=== PATIENT | male | born 1980 | race Caucasian/White ===

== ENCOUNTER 2018-05-08 05:13 | Emergency (ER) | payer OTHER ==
[2018-05-08 05:23] LABS: Glucose,Whole Blood 120 mg/dL (75-99)
[2018-05-08 05:24] VITALS: TEMP 97.3
--- NOTE | 2018-05-08 05:33 | ED ---
General Adult HPI - General Chief complaint: Recheck/Abnormal Lab/Rx Stated complaint: ETOH Time Seen by Provider: 05/08/18 05:18 Source: patient Mode of arrival: EMS Limitations: no limitations - History of Present Illness Initial comments: Shunt is a 37-year-old gentleman who presents to the emergency department today via EMS for evaluation of alcohol intoxication. Patient states that this evening he drank a couple OF high percentage alcohol beer. He states that he became intoxicated and was unable to return to his [facility] house therefore he decided to go to the local [facility] where he subsequent he fell asleep for approximately 2 hours. At that time staff at [facility] called 911, patient states that he asked the police to take him to the drunk tank because he had nowhere else to go however they were unwilling to do that due to his alcohol intoxication and he was transferred here. Patient has no complaints and states that he simply has nowhere to go. - Related Data Home Medications Medication Instructions Recorded Confirmed No Known Home Medications 05/08/18 05/08/18 Allergies Allergy/AdvReac Type Severity Reaction Status Date / Time No Known Allergies Allergy Verified 05/08/18 08:50 Review of Systems ROS Statement: Those systems with pertinent positive or pertinent negative responses have been documented in the HPI. ROS Other: All systems not noted in ROS Statement are negative. Past Medical History Past Medical History: No Reported History Additional Past Medical History / Comment(s): Substance abuse History of Any Multi-Drug Resistant Organisms: None Reported Past Surgical History: No Surgical Hx Reported Past Psychological History: No Psychological Hx Reported Smoking Status: Current every day smoker Past Alcohol Use History: Occasional Past Drug Use History: None Reported General Exam - General Exam Comments Initial Comments: Physical Exam GENERAL: Patient is well-developed and well-nourished. Patient is nontoxic and well- hydrated and is in no distress. Appears intoxicated, smells of alcohol HENT: Normocephalic, Atraumatic. EYES: PERRL, EOMI PULMONARY: Unlabored respirations. No audible rales rhonchi or wheezing was noted. CARDIOVASCULAR: There is a regular rate and rhythm without any murmurs gallops or rubs. ABDOMEN: Soft and nontender with normal bowel sounds. SKIN: Skin is clear with no lesions or rashes and otherwise unremarkable. : Deferred NEUROLOGIC: Patient is alert and oriented x3. Moving all extremities spontaneously MUSCULOSKELETAL: Normal extremities with adequate strength and full range of motion. No lower extremity swelling or edema. No calf tenderness. PSYCHIATRIC: Normal psychiatric evaluation. Limitations: no limitations Limitations: no limitations Course Vital Signs 05/08/18 05:18 Temperature 97.3 F L Pulse Rate 80 Respiratory 20 Rate Blood Pressure 135/90 O2 Sat by Pulse 99 Oximetry Medical Decision Making - Medical Decision Making The patient was seen and evaluated, history was obtained from the patient and EMS Patient with no acute complaints, admits to drinking alcohol, has no place to go and no family to contact. Physical exam with no evidence of trauma, vital signs unremarkable Medical screening exam with no acute findings At this time there is no indication for further workup. Patient's breath alcohol level was measured he will be legally sober at 1:30 PM Patient care is signed out to Dr. Winkler at 9am - Lab Data Lab Results 05/08/18 Range/Units 05:20 POC Glucose (mg/dL) 120 H (75-99) mg/dL POC Glu Public Service Administrator ID Meagan Desai Disposition Clinical Impression: Alcohol intoxication Disposition: HOME SELF-CARE Condition: Good Instructions: Abuse of Alcohol (ED) Referrals: Kurtis Rainey PAC [REFERRING] - 1-2 days
[2018-05-08 13:12] VITALS: BP 130/89; PULSE 110; RESP 18
== END 2018-05-08 13:09 | disposition home or self-care (01) ==
LOC: SUPCPDRO 05:13 → EC 05:13
DX: F10.129 Alcohol abuse with intoxication, unspecified (principal); F17.200 Nicotine dependence, unspecified, uncomplicated
CPT/HCPCS: 36415; 99284

== ENCOUNTER 2018-05-08 18:29 | Inpatient (IN) | payer MEDICAID, OTHER ==
[2018-05-08] MEDS ORDERED: LORazepam 1 MG TAB PO STA (20:21)
--- NOTE | 2018-05-08 20:29 | ED ---
General Adult HPI - General Source: patient, RN notes reviewed Mode of arrival: ambulatory Limitations: no limitations <Parker Toney - Last Filed: 05/08/18 20:38> <Yonathan Richardson - Last Filed: 05/09/18 12:12> - General Chief complaint: Alcohol Stated complaint: Alcohol Time Seen by Provider: 05/08/18 18:30 - History of Present Illness Initial comments: This is a 37-year-old male who presents emergency Department complaining that he is suicidal. Patient states he is upset because he has a drinking problem and he was clean for 60 days and this week he started drinking again. Patient was just discharged from the emergency department this morning after he had been here because of drinking. Patient states went back up today and continue drinking and now is at the point where he wants to harm himself. Patient states she's also kicked out of the three-quarter home because of his drinking. Patient denies any physical complaints today. Patient denies making any attempt at suicide today. Patient denies headache patient denies numbness weakness. Patient denies any lightheadedness dizziness or near syncopal episode. Patient denies any chest pain difficulty breathing shortest breath per patient denies any recent fever chills or cough. Patient denies abdominal pain patient denies nausea vomiting or diarrhea. Patient denies any injury or trauma. (Parker Toney) - Related Data Home Medications Medication Instructions Recorded Confirmed No Known Home Medications 05/08/18 05/08/18 Allergies Allergy/AdvReac Type Severity Reaction Status Date / Time No Known Allergies Allergy Verified 05/08/18 20:05 Review of Systems ROS Other: All systems not noted in ROS Statement are negative. <Parker Toney - Last Filed: 05/08/18 20:38> ROS Other: All systems not noted in ROS Statement are negative. <Yonathan Richardson - Last Filed: 05/09/18 12:12> ROS Statement: Those systems with pertinent positive or pertinent negative responses have been documented in the HPI. Past Medical History Past Medical History: No Reported History Additional Past Medical History / Comment(s): Substance abuse History of Any Multi-Drug Resistant Organisms: None Reported Past Surgical History: No Surgical Hx Reported Past Psychological History: No Psychological Hx Reported Smoking Status: Current every day smoker Past Alcohol Use History: Abuse, Heavy Past Drug Use History: None Reported <Parker Toney - Last Filed: 05/08/18 20:38> General Exam Limitations: no limitations <Parker Toney - Last Filed: 05/08/18 20:38> <Yonathan Richardson - Last Filed: 05/09/18 12:12> - General Exam Comments Initial Comments: GENERAL: Patient is well-developed and well-nourished. Patient is nontoxic and well- hydrated and is in mild distress. Patient appears intoxicated. ENT: Neck is soft and supple. No significant lymphadenopathy is noted. Oropharynx is clear. Moist mucous membranes. Neck has full range of motion without eliciting any pain. EYES: The sclera were anicteric and conjunctiva were pink and moist. Extraocular movements were intact and pupils were equal round and reactive to light. Eyelids were unremarkable. PULMONARY: Unlabored respirations. Good breath sounds bilaterally. No audible rales rhonchi or wheezing was noted. CARDIOVASCULAR: There is a regular rate and rhythm without any murmurs gallops or rubs. ABDOMEN: Soft and nontender with normal bowel sounds. SKIN: Skin is clear with no lesions or rashes and otherwise unremarkable. NEUROLOGIC: Patient is alert and oriented x3. Cranial nerves II through XII are grossly intact. Motor and sensory are also intact. Normal speech, volume and content. Symmetrical smile. MUSCULOSKELETAL: Normal extremities with adequate strength and full range of motion. No lower extremity swelling or edema. No calf tenderness. LYMPHATICS: No significant lymphadenopathy is noted PSYCHIATRIC: Patient states he suicidal. (Parekr Toney) Vital Signs 05/08/18 05/08/18 05/08/18 18:42 20:43 22:01 Temperature 97.9 F 96.9 F L Pulse Rate 103 H 88 120 H Respiratory 20 18 18 Rate Blood Pressure 152/76 122/75 120/58 O2 Sat by Pulse 98 97 95 Oximetry 05/09/18 05/09/18 00:43 06:03 Temperature 97.9 F 96.7 F L Pulse Rate 84 102 H Respiratory 14 16 Rate Blood Pressure 96/55 115/58 O2 Sat by Pulse 96 97 Oximetry Medical Decision Making <Parker Toney - Last Filed: 05/08/18 20:38> - Lab Data Result diagrams: 05/09/18 10:34 05/09/18 10:34 <Yonathan Richardson - Last Filed: 05/09/18 12:12> - Medical Decision Making Dr. Slater will be taking over the care of this patient at 9 PM (Parker Toney) Patient's care is signed out at shift change awaiting EPS final disposition. I did complete a clinical cert on this patient he is still suicidal with a plan. He will be admitted to this institution for further psychiatric evaluation and treatment. (Yonathan Richardson) - Lab Data Lab Results 05/08/18 05/09/18 05/09/18 Range/Units 21:03 10:34 10:34 WBC 9.5 (3.8-10.6) k/uL RBC 4.57 (4.30-5.90) m/uL Hgb 10.1 L (13.0-17.5) gm/dL Hct 32.8 L (39.0-53.0) % MCV 71.8 L (80.0-100.0) fL MCH 22.2 L (25.0-35.0) pg MCHC 30.9 L (31.0-37.0) g/dL RDW 20.1 H (11.5-15.5) % Plt Count 411 (150-450) k/uL Neutrophils % 63 % Lymphocytes % 27 % Monocytes % 5 % Eosinophils % 1 % Basophils % 1 % Neutrophils # 6.0 (1.3-7.7) k/uL Lymphocytes # 2.6 (1.0-4.8) k/uL Monocytes # 0.5 (0-1.0) k/uL Eosinophils # 0.1 (0-0.7) k/uL Basophils # 0.1 (0-0.2) k/uL Hypochromasia Moderate Anisocytosis Moderate Microcytosis Marked Sodium 139 (137-145) mmol/L Potassium 4.5 (3.5-5.1) mmol/L Chloride 109 H (98-107) mmol/L Carbon Dioxide 26 (22-30) mmol/L Anion Gap 4 mmol/L BUN 10 (9-20) mg/dL Creatinine 0.71 (0.66-1.25) mg/dL Est GFR (CKD-EPI)AfAm >90 (>60 ml/min/1.73 sqM) Est GFR (CKD-EPI)NonAf >90 (>60 ml/min/1.73 sqM) Glucose 103 H (74-99) mg/dL Calcium 9.4 (8.4-10.2) mg/dL Total Bilirubin 0.5 (0.2-1.3) mg/dL AST 27 (17-59) U/L ALT 29 (21-72) U/L Alkaline Phosphatase 91 (38-126) U/L Total Protein 7.0 (6.3-8.2) g/dL Albumin 3.9 (3.5-5.0) g/dL Urine Color Urine Appearance (Clear) Urine pH (5.0-8.0) Ur Specific Gaffney (1.001-1.035) Urine Protein (Negative) Urine Glucose (UA) (Negative) Urine Ketones (Negative) Urine Blood (Negative) Urine Nitrite (Negative) Urine Bilirubin (Negative) Urine Urobilinogen (<2.0) mg/dL Ur Leukocyte Esterase (Negative) Urine Opiates Screen Not Detected (NotDetected) Ur Oxycodone Screen Not Detected (NotDetected) Urine Methadone Screen Not Detected (NotDetected) Ur Propoxyphene Screen Not Detected (NotDetected) Ur Barbiturates Screen Not Detected (NotDetected) U Tricyclic Antidepress Not Detected (NotDetected) Ur Phencyclidine Scrn Not Detected (NotDetected) Ur Amphetamines Screen Not Detected (NotDetected) U Methamphetamines Scrn Not Detected (NotDetected) U Benzodiazepines Scrn Not Detected (NotDetected) Urine Cocaine Screen Not Detected (NotDetected) U Marijuana (THC) Screen Not Detected (NotDetected) 05/09/18 Range/Units 10:38 WBC (3.8-10.6) k/uL RBC (4.30-5.90) m/uL Hgb (13.0-17.5) gm/dL Hct (39.0-53.0) % MCV (80.0-100.0) fL MCH (25.0-35.0) pg MCHC (31.0-37.0) g/dL RDW (11.5-15.5) % Plt Count (150-450) k/uL Neutrophils % % Lymphocytes % % Monocytes % % Eosinophils % % Basophils % % Neutrophils # (1.3-7.7) k/uL Lymphocytes # (1.0-4.8) k/uL Monocytes # (0-1.0) k/uL Eosinophils # (0-0.7) k/uL Basophils # (0-0.2) k/uL Hypochromasia Anisocytosis Microcytosis Sodium (137-145) mmol/L Potassium (3.5-5.1) mmol/L Chloride (98-107) mmol/L Carbon Dioxide (22-30) mmol/L Anion Gap mmol/L BUN (9-20) mg/dL Creatinine (0.66-1.25) mg/dL Est GFR (CKD-EPI)AfAm (>60 ml/min/1.73 sqM) Est GFR (CKD-EPI)NonAf (>60 ml/min/1.73 sqM) Glucose (74-99) mg/dL Calcium (8.4-10.2) mg/dL Total Bilirubin (0.2-1.3) mg/dL AST (17-59) U/L ALT (21-72) U/L Alkaline Phosphatase (38-126) U/L Total Protein (6.3-8.2) g/dL Albumin (3.5-5.0) g/dL Urine Color Yellow Urine Appearance Clear (Clear) Urine pH 7.0 (5.0-8.0) Ur Specific Gaffney 1.013 (1.001-1.035) Urine Protein Negative (Negative) Urine Glucose (UA) Negative (Negative) Urine Ketones Negative (Negative) Urine Blood Negative (Negative) Urine Nitrite Negative (Negative) Urine Bilirubin Negative (Negative) Urine Urobilinogen <2.0 (<2.0) mg/dL Ur Leukocyte Esterase Negative (Negative) Urine Opiates Screen (NotDetected) Ur Oxycodone Screen (NotDetected) Urine Methadone Screen (NotDetected) Ur Propoxyphene Screen (NotDetected) Ur Barbiturates Screen (NotDetected) U Tricyclic Antidepress (NotDetected) Ur Phencyclidine Scrn (NotDetected) Ur Amphetamines Screen (NotDetected) U Methamphetamines Scrn (NotDetected) U Benzodiazepines Scrn (NotDetected) Urine Cocaine Screen (NotDetected) U Marijuana (THC) Screen (NotDetected) Disposition <Parker Toney - Last Filed: 05/08/18 20:38> Is patient prescribed a controlled substance at d/c from ED?: No Decision to Admit Reason: Admit from EC Decision Date: 05/09/18 Decision Time: 12:12 <Yonathan Richardson - Last Filed: 05/09/18 12:12> Clinical Impression: Suicidal ideation, Alcohol intoxication Disposition: ADMITTED IP TO THIS HOSP Condition: Stable Referrals: None,Stated [Primary Care Provider] - 1-2 days
[2018-05-08 21:35] LABS: Amphetamine Screen,Urine Not Detected (NotDetected); Barbiturate Screen,Urine Not Detected (NotDetected); Benzodiazepines Screen,Urine Not Detected (NotDetected); Cocaine Screen,Urine Not Detected (NotDetected); Methadone Screen, Urine Not Detected (NotDetected); Opiate Screen,Urine Not Detected (NotDetected); Oxycodone Screen, Urine Not Detected (NotDetected); Phencyclidine Screen,Urine Not Detected (NotDetected); Tricyclic Antidepressant,Urine Not Detected (NotDetected); Urn Cannabinoid Scrn Not Detected (NotDetected)
--- NOTE | 2018-05-09 08:01 | CDI ---
Documentation Clarification OP Dear Dr.Roskopp Canales Please clinical impression & disposition. Thank you, Wei Serrano Battery Vent Plug Inserter If you have any questions, please contact Licensed Weigher at [phone] [facility]
[2018-05-09 10:52] LABS: Anisocytosis Moderate; Basophils # (A) 0.1 k/uL (0-0.2); Basophils % (A) 1 %; Eosinophils # (A) 0.1 k/uL (0-0.7); Eosinophils % (A) 1 %; HCT 32.8 % (39.0-53.0); HGB 10.1 gm/dL (13.0-17.5); Hypochromasia Moderate; Lymphocytes # (A) 2.6 k/uL (1.0-4.8); Lymphocytes % (A) 27 %; MCH 22.2 pg (25.0-35.0); MCHC 30.9 g/dL (31.0-37.0); MCV 71.8 fL (80.0-100.0); Mean Platelet Volume 6.9; Microcytosis Marked; Monocytes # (A) 0.5 k/uL (0-1.0); Monocytes % (A) 5 %; Neutrophils % (A) 63 %; Platelet Count 411 k/uL (150-450); RBC 4.57 m/uL (4.30-5.90); RDW 20.1 % (11.5-15.5); WBC 9.5 k/uL (3.8-10.6)
[2018-05-09 10:55] LABS: Appearance,Urine Clear (Clear); Bilirubin,Urine Negative (Negative); Blood,Urine Negative (Negative); Color,Urine Yellow; Glucose,Urine (UA) Negative (Negative); Ketones,Urine Negative (Negative); Leukocyte Esterase,Urine Negative (Negative); Nitrite,Urine Negative (Negative); Protein,Urine Negative (Negative); Specific Gravity,Urine 1.013 (1.001-1.035); Urobilinogen,Urine <2.0 mg/dL (<2.0)
[2018-05-09 11:01] LABS: ALT 29 U/L (21-72); AST 27 U/L (17-59); Albumin 3.9 g/dL (3.5-5.0); Alkaline Phosphatase 91 U/L (38-126); Anion Gap 4 mmol/L; Blood Urea Nitrogen 10 mg/dL (9-20); Calcium 9.4 mg/dL (8.4-10.2); Carbon Dioxide 26 mmol/L (22-30); Chloride 109 mmol/L (98-107); Glucose 103 mg/dL (74-99); Potassium 4.5 mmol/L (3.5-5.1); Sodium 139 mmol/L (137-145); Total Bilirubin 0.5 mg/dL (0.2-1.3)
[2018-05-09] MEDS ORDERED: LORazepam 1 MG TAB PO PRN (13:34)
[2018-05-09] MEDS ORDERED: MAGNESIUM HYDROXIDE 2,400 MG/10 ML CUP PO PRN (13:34)
[2018-05-09] MEDS ORDERED: MAG HYDROX/AL HYDROX/SIMETH 30 ML CUP PO PRN (13:34)
[2018-05-09] MEDS ORDERED: ACETAMINOPHEN TAB 325 MG TAB PO PRN (13:34)
[2018-05-09 13:58] VITALS: BMI 25.8
[2018-05-09] MEDS: NICOTINE 21MG/24HR PATCH TRANSDERM SCH (17:19)
--- NOTE | 2018-05-09 18:10 | P.HPIM ---
History of Present Illness H&P Date: 05/09/18 The patient is a 37 yo M with a PMH of EtOH abuse and tobacco abuse presented to the ED for suicidal ideation. The patient notes that he had been abstaining from alcohol due to hx of abuse and was staying at a [id number] when he decided to have a beer while out with his friends. Upon returning to his house, his house-mates smelled the alcohol on his breath and kicked him out. Since he did not have a place to live, he became very depressed and was thinking of killing himself, at which time he decided to come to the ED. He notes that he is feeling somewhat better after coming in and denied homicidal or suicidal ideation. He smokes 2 PPD for past 20 years. Notes his last drink was 2 nights ago, 1 beer, and otherwise has been abstinent for 60 days. He further denied chest pain, SOB, nausea, vomiting, diarrhea, constipation, fever, chills, dizziness, headache, weakness, numbness, or sick contacts. Review of Systems Pertinent positives and negatives as discussed in HPI, a complete review of systems was performed and all other systems are negative. Past Medical History Past Medical History: No Reported History Additional Past Medical History / Comment(s): Substance abuse History of Any Multi-Drug Resistant Organisms: None Reported Past Surgical History: Orthopedic Surgery Additional Past Surgical History / Comment(s): Bilateral pin inserted at age 11 and removed at age 18 Past Anesthesia/Blood Transfusion Reactions: No Reported Reaction Past Psychological History: No Psychological Hx Reported Smoking Status: Current every day smoker Past Alcohol Use History: Abuse, Heavy Past Drug Use History: None Reported Medications and Allergies Home Medications Medication Instructions Recorded Confirmed Type No Known Home Medications 05/08/18 05/08/18 History Allergies Allergy/AdvReac Type Severity Reaction Status Date / Time No Known Allergies Allergy Verified 05/09/18 14:03 Physical Exam Vitals: Vital Signs Temp Pulse Pulse Resp BP BP Pulse Ox 05/09/18 13:43 97.9 F 96 18 149/103 05/09/18 12:43 96.9 F L 90 18 142/83 96 05/09/18 06:03 96.7 F L 102 H 16 115/58 97 05/09/18 00:43 97.9 F 84 14 96/55 96 05/08/18 22:01 120 H 18 120/58 95 05/08/18 20:43 96.9 F L 88 18 122/75 97 05/08/18 18:42 97.9 F 103 H 20 152/76 98 Intake and Output 05/09/18 05/09/18 05/09/18 06:59 14:59 22:59 Other: Weight 81.647 kg General: [non toxic], [no distress], [appears at stated age], [normal weight] Derm: [no unusual rashes/lesions] [no unusual ecchymoses], [warm], [dry] Head: [atraumatic], [normocephalic], [symmetric] Eyes: [EOMI], [no lid lag], [anicteric sclera], [pupils equal round reactive to light] ENT: [Nose and ears atraumatic], [no thrush], [no pharyngeal erythema] Neck: [No thyromegaly], [no cervical lymphadenopathy], [trachea midline], [ supple] Mouth: [no lip lesion], [mucus membranes moist] Cardiovascular: [S1S2 reg], [no murmur], [positive posterior tibial pulse bilateral], [no edema], [capillary refill less than 2 seconds] Lungs: [CTA bilateral], [no rhonchi, no rales] , [no accessory muscle use] Abdominal: [soft], [ nontender to palpation], [no guarding], [no appreciable organomegaly], [normal bowel sounds] Ext: [no gross muscle atrophy], [muscle strength 5 out of 5 in all 4 extremities grossly], [no contractures], Neuro: [ CN II-XI grossly intact], [light touch intact all 4 extremities], [ finger to nose within normal limits], Psych: [Alert], [oriented], [appropriate affect] Results CBC & Chem 7: 05/09/18 10:34 05/09/18 10:34 Labs: Abnormal Lab Results - Last 24 Hours (Table) 05/09/18 05/09/18 Range/Units 10:34 10:34 Hgb 10.1 L (13.0-17.5) gm/dL Hct 32.8 L (39.0-53.0) % MCV 71.8 L (80.0-100.0) fL MCH 22.2 L (25.0-35.0) pg MCHC 30.9 L (31.0-37.0) g/dL RDW 20.1 H (11.5-15.5) % Chloride 109 H (98-107) mmol/L Glucose 103 H (74-99) mg/dL Thrombosis Risk Factor Assmnt - Choose All That Apply Any of the Below Risk Factors Present?: No Other Risk Factors: No Other congenital or acquired thrombophilia - If yes, enter type in comment: No Thrombosis Risk Factor Assessment Level: Very Low Risk Assessment and Plan Plan: Tobacco abuse - Nicotine patch Suicidal ideation - As per psychiatry - C/w anti-depressants Microcytic anemia - Will check Iron panel - Possibly secondary to chronic EtOH abuse Thank you for allowing us to participate in the care of this patient. We will follow peripherally. Do not hesitate to contact us with questions. Someone can be reached from the [facility] hospitalist group at all hours of the day at [phone].
[2018-05-10 06:46] VITALS: RESP 16
[2018-05-10] MEDS: NICOTINE 21MG/24HR PATCH TRANSDERM SCH (09:23)
--- NOTE | 2018-05-10 09:36 | P.HP ---
Psychiatric H&P - . History & Physical: Allergies Allergy/AdvReac Type Severity Reaction Status Date / Time No Known Allergies Allergy Verified 05/09/18 14:03 Vital Signs Temp 97.5 F L 05/10/18 06:45 Pulse 71 05/10/18 06:45 Resp 16 05/10/18 06:45 BP 153/72 05/10/18 06:45 Pulse Ox 96 05/09/18 12:43 Intake & Output 05/09/18 05/10/18 05/10/18 18:59 06:59 18:59 Weight 81.647 kg Laboratory Last Values WBC 9.5 k/uL (3.8-10.6) 05/09/18 10:34 RBC 4.57 m/uL (4.30-5.90) 05/09/18 10:34 Hgb 10.1 gm/dL (13.0-17.5) L 05/09/18 10:34 Hct 32.8 % (39.0-53.0) L 05/09/18 10:34 MCV 71.8 fL (80.0-100.0) L 05/09/18 10:34 MCH 22.2 pg (25.0-35.0) L 05/09/18 10:34 MCHC 30.9 g/dL (31.0-37.0) L 05/09/18 10:34 RDW 20.1 % (11.5-15.5) H 05/09/18 10:34 Plt Count 411 k/uL (150-450) 05/09/18 10:34 Neutrophils % 63 % 05/09/18 10:34 Lymphocytes % 27 % 05/09/18 10:34 Monocytes % 5 % 05/09/18 10:34 Eosinophils % 1 % 05/09/18 10:34 Basophils % 1 % 05/09/18 10:34 Neutrophils # 6.0 k/uL (1.3-7.7) 05/09/18 10:34 Lymphocytes # 2.6 k/uL (1.0-4.8) 05/09/18 10:34 Monocytes # 0.5 k/uL (0-1.0) 05/09/18 10:34 Eosinophils # 0.1 k/uL (0-0.7) 05/09/18 10:34 Basophils # 0.1 k/uL (0-0.2) 05/09/18 10:34 Hypochromasia Moderate 05/09/18 10:34 Anisocytosis Moderate 05/09/18 10:34 Microcytosis Marked 05/09/18 10:34 Sodium 139 mmol/L (137-145) 05/09/18 10:34 Potassium 4.5 mmol/L (3.5-5.1) 05/09/18 10:34 Chloride 109 mmol/L (98-107) H 05/09/18 10:34 Carbon Dioxide 26 mmol/L (22-30) 05/09/18 10:34 Anion Gap 4 mmol/L 05/09/18 10:34 BUN 10 mg/dL (9-20) 05/09/18 10:34 Creatinine 0.71 mg/dL (0.66-1.25) 05/09/18 10:34 Est GFR (CKD-EPI)AfAm >90 (>60 ml/min/1.73 sqM) 05/09/18 10:34 Est GFR (CKD-EPI)NonAf >90 (>60 ml/min/1.73 sqM) 05/09/18 10:34 Glucose 103 mg/dL (74-99) H 05/09/18 10:34 Calcium 9.4 mg/dL (8.4-10.2) 05/09/18 10:34 Total Bilirubin 0.5 mg/dL (0.2-1.3) 05/09/18 10:34 AST 27 U/L (17-59) 05/09/18 10:34 ALT 29 U/L (21-72) 05/09/18 10:34 Alkaline Phosphatase 91 U/L (38-126) 05/09/18 10:34 Total Protein 7.0 g/dL (6.3-8.2) 05/09/18 10:34 Albumin 3.9 g/dL (3.5-5.0) 05/09/18 10:34 TSH 2.290 mIU/L (0.465-4.680) 05/09/18 10:34 Urine Color Yellow 05/09/18 10:38 Urine Appearance Clear (Clear) 05/09/18 10:38 Urine pH 7.0 (5.0-8.0) 05/09/18 10:38 Ur Specific [place] 1.013 (1.001-1.035) 05/09/18 10:38 Urine Protein Negative (Negative) 05/09/18 10:38 Urine Glucose (UA) Negative (Negative) 05/09/18 10:38 Urine Ketones Negative (Negative) 05/09/18 10:38 Urine Blood Negative (Negative) 05/09/18 10:38 Urine Nitrite Negative (Negative) 05/09/18 10:38 Urine Bilirubin Negative (Negative) 05/09/18 10:38 Urine Urobilinogen <2.0 mg/dL (<2.0) 05/09/18 10:38 Ur Leukocyte Esterase Negative (Negative) 05/09/18 10:38 Urine Opiates Screen Not Detected (NotDetected) 05/08/18 21:03 Ur Oxycodone Screen Not Detected (NotDetected) 05/08/18 21:03 Urine Methadone Screen Not Detected (NotDetected) 05/08/18 21:03 Ur Propoxyphene Screen Not Detected (NotDetected) 05/08/18 21:03 Ur Barbiturates Screen Not Detected (NotDetected) 05/08/18 21:03 U Tricyclic Antidepress Not Detected (NotDetected) 05/08/18 21:03 Ur Phencyclidine Scrn Not Detected (NotDetected) 05/08/18 21:03 Ur Amphetamines Screen Not Detected (NotDetected) 05/08/18 21:03 U Methamphetamines Scrn Not Detected (NotDetected) 05/08/18 21:03 U Benzodiazepines Scrn Not Detected (NotDetected) 05/08/18 21:03 Urine Cocaine Screen Not Detected (NotDetected) 05/08/18 21:03 U Marijuana (THC) Screen Not Detected (NotDetected) 05/08/18 21:03 05/10/18 09:24 IDENTIFYING DATA: This patient is a 37-year-old male who was admitted to the mental health unit with suicidal ideation. HPI: The patient presented Monday to the emergency room describing acute suicidal ideation with a plan to jump in the river or walk out into traffic. He has a long-standing history of alcohol use disorder. He had relapsed the day before and was kicked out of the recovery house. He felt dysphoric hopeless and then began having suicidal ideation. He reported to nursing that he was going to act on these thoughts and could not keep himself safe. He identified having no other resources or support from any family member or friends. He states that he will have brief episodes of depressed mood. Lately his appetite is been decreased sleep has been off and on. Energy level adequate. He states he still has suicidal thoughts but feels safe here in the hospital. He is reporting no homicidal ideation intent or plan. He endorses no history of hypomanic or manic episodes. He endorses no auditory or visual hallucinations or any specific delusions. He will have anxiety intermittently. He feels that he will have anxiety attacks at times feels that he can simply talk himself through those. At this point he identifies himself as being homeless. He denies having any ownership or access to firearms. PAST PSYCHIATRIC HISTORY: The patient's first psychiatric admission, no history of suicide attempts, he's been on no psychotropic medication other than a vivatrol injection. PMH: None reported ALLERGIES: NO KNOWN DRUG ALLERGIES MEDICATIONS: vivatrol injection CHEMICAL DEPENDENCY HISTORY: The patient has a known alcohol use disorder, he's been overusing alcohol since the age of 23. He was consuming approximately 622 ounce beers a day or more. He recently went to [facility] for inpatient chemical dependency treatment and was there for 2 weeks. He reports residing at the recovery house and attending AA meetings. He had 60 days of sobriety before relapsing. He states that 60 days was his longest known sobriety. He reports no use of marijuana or illicit drugs. His UDS was negative. FAMILY PSYCHIATRIC HISTORY: None reported, no suicides in the family FAMILY CHEMICAL DEPENDENCY HISTORY: He reports that his father and paternal grandfather were alcohol dependent, a maternal uncle is alcohol dependent SOCIAL HISTORY: The patient is a 37-year-old male. He is technically homeless at this time. He was residing at a recovery house for approximately one month. He was employed for 1 day at [employer]. He has a high school education with college classes with no degree earned. No history of service. He has 2 children ages 14 and 15 they reside with their respective mother. The patient has 1 brother and 2 half sisters. He is originally from the [facility]. He states due to his drinking he has burned bridges with all family and friends except for a female friend in [place]. The patient has been arrested numerous times. He has 2 DUIs to possession of marijuana offenses and has been arrested for child support. He states he's been in halfway over 12 times and most recently was in halfway until the end of February for child support. He reports no abuse history. MENTAL STATUS EXAM: The patient is a male appearing his stated age. His hair is cut very short he is dressed in his own clothing eye contact is appropriate. He is pleasant and cooperative and easily directed during the session. He reports hopelessness thinking and ongoing suicidal ideation but feels safe in the hospital. He reports no homicidal ideation intent or plan. He endorses no auditory or visual hallucinations or any specific delusions. There is no observed evidence of psychosis. He demonstrates no circumstantial thinking tangential thinking loose associations or flight of ideas. He does not appear hypomanic or manic. He demonstrates no verbal or physical aggressiveness. He demonstrates no repetitive involuntary movements. He is oriented to person place and date. He is able to name the days of the week backwards. Affect is constricted. STRENGTHS/WEAKNESSES: Strengths: Willingness to receive treatment in voluntarily weaknesses: Ongoing alcohol use homelessness INTELLECTUAL FUNCTIONING: Average IMPRESSIONS: [] 1. Depression unspecified, alcohol use disorder PLAN: The patient has been admitted to the mental health unit he is here voluntarily. We reviewed his presenting symptoms and treatment options. He is instructed to attend groups throughout the day. He will meet with social work to complete a psychosocial assessment. He will be seen by internal medicine for routine history and physical exam. We discussed his presenting symptoms in detail. He does not endorse full episodes of depression. He does not feel that he requires a prescribed psychotropic medication. We discussed the possibility of returning to [facility] for inpatient chemical dependency treatment. We discussed the possibility of getting back into the recovery house. We will monitor him for safety.
[2018-05-10 12:08] LABS: Iron Saturation 7.34 (15.00-50.00)
--- NOTE | 2018-05-10 17:11 | P.PN ---
Subjective Progress Note Date: 05/10/18 The patient seen in the MHU. He denied any active complaints and was in good spirits. The patient was informed about his iron deficiency anemia. He noted that he was aware of his anemia and had been meaning to f/u with his PMD regarding this. He denied hematochezia, melena, diarrhea, nausea, vomiting, abdominal pain, or dizziness. Objective - Vital Signs Vital signs: Vital Signs Temp 97.5 F L 05/10/18 06:45 Pulse 71 05/10/18 06:45 Resp 16 05/10/18 06:45 BP 153/72 05/10/18 06:45 Pulse Ox 96 05/09/18 12:43 Intake & Output 05/09/18 05/10/18 05/10/18 18:59 06:59 18:59 Weight 81.647 kg - Exam General: Non-toxic, in no acute distress, appears stated age HEENT: NC/AT, anicteric sclerae, moist conjunctiva, no lid-lag, PERRLA Cardiovascular: S1/S2 wnl, no murmurs, rubs, or gallops Lungs: Clear to auscultation, normal respiratory effort, no accessory muscle use Abdominal: Soft, nontender, non-distended, no guarding, rebound, or rigidity Skin: Warm, dry Extremities: No edema or contractures Psychiatric: Alert and oriented to person, place and time, appropriate affect, Intact judgment Neuro: CN II-XII grossly intact, Strength 5/5 in all 4 extremities, Speech intact, Sensation to light touch grossly intact throughout - Labs CBC & Chem 7: 05/09/18 10:34 05/09/18 10:34 Labs: Abnormal Lab Results - Last 24 Hours (Table) 05/09/18 Range/Units 10:34 Iron 29 L (65-175) ug/dL Iron Saturation 7.34 L (15.00-50.00) Ferritin 6.9 L (22.0-322.0) ng/mL Assessment and Plan Plan: Tobacco abuse - Nicotine patch Suicidal ideation - As per psychiatry - C/w anti-depressants Iron deficiency anemia - Patient will need outpatient f/u for further w/u including possible Colonoscopy. Patient plans to f/u with his PMD. Thank you for allowing us to participate in the care of this patient. We will follow peripherally. Do not hesitate to contact us with questions. Someone can be reached from the [facility] hospitalist group at all hours of the day at [phone].
[2018-05-11 06:46] VITALS: BP 133/91; PULSE 70; TEMP 97.9
[2018-05-11] MEDS: NICOTINE 21MG/24HR PATCH TRANSDERM SCH (07:44)
--- NOTE | 2018-05-11 09:10 | P.DS ---
Providers Date of admission: 05/09/18 12:22 Expected date of discharge: 05/11/18 Attending physician: Tarik Wheeler Consults: 05/09/18 13:34 Consult Physician Routine Consulting Provider: Diana Powers Consult Reason/Comments: history and physical Do you want consulting provider notified?: Yes Primary care physician: Stated None - Discharge Diagnosis(es) (1) Depression Current Visit: Yes Status: Acute Priority: High (2) Alcohol use disorder Current Visit: Yes Status: Acute Priority: High Hospital Course: Brief summary of admission note: This patient is a 37-year-old male who was admitted to the mental health unit with suicidal ideation. The patient presented to the hospital Monday with thoughts of jumping in the river or walking out into traffic. He has a long-standing history of alcohol use disorder. He had relapsed the day before and was kicked out of his sober living residence. At that point he was homeless became overwhelmed and felt suicidal. For full details please refer to my psychiatric evaluation dated 05/10/2018. Summary of hospital course: The patient was admitted to the mental health unit voluntarily. We reviewed his presenting symptoms and treatment options. We monitored for symptoms of alcohol withdrawal fortunately he had none. He was seen by internal medicine for routine history and physical exam. Social work met with the patient to complete a psychosocial assessment. The patient selectively attended groups. We reviewed his presenting symptoms for need of medication. He endorsed no full episodes of depression or any specific anxiety disorders. He has no history of hypomania or milton and presents with no psychosis. He does not require a psychotropic medication at this time and he prefers not to take 1. He is able to meet his activities of daily living. His primary concern at this point is where he will reside upon discharge. Mental status exam: The patient is alert he is dressed in his own clothing. Hygiene grooming are adequate. Speech is fluent spontaneous nonpressured. He is cooperative and pleasant and easily directed. He reports no suicidal or homicidal ideation intent or plan. He states he does not feel hopeless. He is concerned about where he will reside upon discharge however. He endorses no auditory or visual hallucinations or any specific delusions. There is no observed evidence of psychosis. He demonstrates no tangential thinking loose associations or flight of ideas there is no evidence of hypomania or milton. Insight and judgment grossly intact. He is oriented to person place and date. He demonstrates no verbal or physical aggressiveness. Affect is appropriately expressive. He described his mood as being "good". Impressions 1. Depression unspecified, rule out mood symptoms secondary to alcohol use, alcohol use disorder Plan: The patient will be discharged mental health unit today. Social work will arrange his outpatient follow-up. He is hoping to reconnect with the manager federal of the sober living residence to get readmitted. At this time the patient demonstrates no imminent safety risk. We discussed that continued use of alcohol could exacerbate mood symptoms and elevate his safety risk. He is instructed to abstain from any use of alcohol marijuana or any illicit drug. During the admission we discussed having him participate again in inpatient chemical dependency treatment he feels that is unnecessary. He has been receiving the monthly Vivatrol injection and he plans to continue that medication. He is instructed to return to the hospital with any acute safety concerns. Patient Condition at Discharge: Stable Plan - Discharge Summary New Discharge Prescriptions: New Nicotine 21Mg/24Hr Patch [Habitrol] 1 patch TRANSDERM DAILY #10 patch Discharge Medication List Nicotine 21Mg/24Hr Patch [Habitrol] 1 patch TRANSDERM DAILY #10 patch 05/11/18 [ Rx] Follow up Appointment(s)/Referral(s): None,Stated [Primary Care Provider] - 1-2 days
== END 2018-05-11 11:54 | disposition home or self-care (01) | DRG 881 ==
LOC: EC 18:29 → 3MHU 05-09 12:22
PROVIDERS: ADMIT Psychiatry & Neurology Psychiatry; ATTEND Psychiatry & Neurology Psychiatry
DX: F32.9 Major depressive disorder, single episode, unspecified (principal); F10.14 Alcohol abuse with alcohol-induced mood disorder; R45.851 Suicidal ideations; F10.129 Alcohol abuse with intoxication, unspecified; F41.1 Generalized anxiety disorder; D50.9 Iron deficiency anemia, unspecified; F17.210 Nicotine dependence, cigarettes, uncomplicated; Z71.6 Tobacco abuse counseling; Z59.0 Homelessness; Z81.1 Family history of alcohol abuse and dependence
CPT/HCPCS: 36415; 80053; 80306; 81003; 82075; 82728; 83540; 83550; 84443; 85025; 99285